=== PATIENT | male | born 1990 | race Caucasian/White ===

== ENCOUNTER 2019-05-17 22:53 | Emergency (ER) | payer OTHER ==
[~2019-05-17] VITALS: Ht 190 cm; Wt 136.4 kg
[~2019-05-17 22:53] MED LIST: AZIT250T PO; BENZ100C18 PO; PRD20T PO; SULF1TAB35 PO; TRAM50TA2 PO
[2019-05-17] MEDS ORDERED: LACTATED RINGERS 1,000 ML IV ONE (23:22)
[2019-05-17 23:40] LABS: BASOPHILS % (AUTO) 0 % (0-10); EOSINOPHILS # (AUTO) 0.1 10^3/uL (0.0-0.3); EOSINOPHILS % (AUTO) 1 % (0-10); HEMATOCRIT 47 % (40-54); HEMOGLOBIN 15.5 G/DL (13.3-17.7); LYMPHOCYTES # (AUTO) 1.5 X 10^3 (1.0-4.0); LYMPHOCYTES % (AUTO) 17 % (12-44); MEAN CORPUSCULAR HEMOGLOBIN 27 PG (25-34); MEAN CORPUSCULAR HGB CONC 33 G/DL (32-36); MEAN CORPUSCULAR VOLUME 81 FL (80-99); MEAN PLATELET VOLUME 11.2 FL (7.4-10.4); MONOCYTES # (AUTO) 0.8 X 10^3 (0.0-1.0); MONOCYTES % (AUTO) 8 % (0-12); NEUTROPHILS # (AUTO) 6.7 X 10^3 (1.8-7.8); NEUTROPHILS % (AUTO) 74 % (42-75); PLATELET COUNT 249 10^3/uL (130-400); RED CELL DISTRIBUTION WIDTH 13.5 % (10.0-14.5); WHITE BLOOD COUNT 9.1 10^3/uL (4.3-11.0)
--- NOTE | 2019-05-17 23:42 | ED Trauma-Multisystem ---
General Chief Complaint: Trauma-Non Activation Stated Complaint: SHOCKED Nursing Triage Note: O Source of Information: Patient Exam Limitations: No Limitations History of Present Illness Date Seen by Provider: May 17, 2019 Time Seen by Provider: 23:22 Initial Comments Here with report of being shocked by [address] before meals electrical line as he was connecting an extension cord to a piece of equipment at work. States that he got knocked back quite a bit of distance. He landed on his bottom. Denies any injury to his head or any injury from that. Does complain of tingling to bilateral wrist along the radial aspect. Denies loss of consciousness. Denies nausea or vomiting. He is walking okay. Occurred: Just Prior to Arrival (approximately one hour ago) Severity: Moderate Pain/Injury Location: Upper Extremity Method of Injury: Other (electrocution) Modifying Factors: Rest Associated Symptoms (Fall): No Abdominal Pain, No Chest Pain, No Confusion, No Headache; Muscle Spasms; No Nausea/Vomiting, No Neck Pain, No Shortness of Air, No Trouble Walking, No Vision Changes Allergies and Home Medications Allergies Coded Allergies: No Known Drug Allergies (Unverified , 06/25/15) Home Medications Sulfamethoxazole/Trimethoprim 1 Each Tablet, 1 EACH PO BID Prescribed by: MADHAV CORNELIUS on 01/27/16 173 Tramadol HCl 50 Mg Tablet, 50 MG PO Q4H PRN for PAIN Prescribed by: MADHAV CORNELIUS on 01/27/16 1734 Patient Home Medication List Home Medication List Reviewed: Yes Review of Systems Review of Systems Constitutional: see HPI; No chills, No fever Eyes: No Symptoms Reported Ears: No Symptoms Reported Nose: No Symptoms Reported Mouth: No Symptoms Reported Throat: No Symptoms to Report Respiratory: No cough, No short of breath Cardiovascular: Denies Chest Pain Gastrointestinal: No abdominal pain, No nausea, No vomiting Musculoskeletal: muscle pain, other (muscle spasms) Skin: no symptoms reported Psychiatric/Neurological: Tingling; Denies Weakness All Other Systems Reviewed Negative Unless Noted: Yes Past Gdixsqn-Nonsxv-Yytxww Hx Past Med/Social Hx: Reviewed Nursing Past Med/Soc Hx Patient Social History Alcohol Use: Occasionally Uses Number of Drinks Today: AA Alcohol Beverage of Choice: Beer Recreational Drug Use: No Smoking Status: Never a Smoker 2nd Hand Smoke Exposure: No Recent Foreign Travel: No Contact w/Someone Who Travel: No Recent Infectious Disease Expo: No Recent Hopitalizations: No Physical Abuse: No Sexual Abuse: No Mistreated: No Fear: No Immunizations Up To Date Tetanus Booster (TDap): More than 5yrs Seasonal Allergies Seasonal Allergies: No Past Medical History Surgeries: Yes (R TESTICLE REMOVED) Respiratory: Yes Sleep Apnea Currently Using CPAP: No Currently Using BIPAP: No Cardiac: No Neurological: No Gastrointestinal: No Musculoskeletal: No Endocrine: No HEENT: No Cancer: No Psychosocial: No Integumentary: No Blood Disorders: No Adverse Reaction/Blood Tranf: No Family Medical History Reviewed Nursing Family Hx No Pertinent Family Hx Physical Exam Vital Signs Vital Signs - First Documented 05/17/19 23:08 Temp 36.7 Pulse 97 Resp 20 B/P (MAP) 198/119 (145) Pulse Ox 97 O2 Delivery Room Air Height, Weight, BMI Height: 6'2" Weight: 330lbs. oz. 149.739696oa; 37.00 BMI Method:Stated General Appearance: No Apparent Distress, WD/WN Head: No Evidence of Injury Ears, Nose, Throat: Hearing Grossly Normal, No Evidence of ENT Injury Neck: Full Range of Motion, Normal Inspection, Non Tender, Supple Cardiovascular: Regular Rate, Rhythm, No Murmur Respiratory: Lungs Clear, Normal Breath Sounds Gastrointestinal: Non Tender, Soft Back: Normal Inspection, No CVA Tenderness, No Vertebral Tenderness Extremity: Normal Inspection, Normal Range of Motion, Non Tender, No Calf Tenderness Neurologic/Psychiatric: Alert, Oriented x3 Skin: Normal Color, Warm/Dry Ender Coma Score Best Eye Response (Allison): (4) Open Spontaneously Best Verbal Response (Ender): (5) Oriented Best Motor Response (Ender): (6) Obeys Commands Progress/Results/Core Measures Results/Orders Lab Results Laboratory Tests Test 05/17/19 23:30 Range/Units White Blood Count 9.1 4.3-11.0 10^3/uL Red Blood Count 5.81 4.35-5.85 10^6/uL Hemoglobin 15.5 13.3-17.7 G/DL Hematocrit 47 40-54 % Mean Corpuscular Volume 81 80-99 FL Mean Corpuscular Hemoglobin 27 25-34 PG Mean Corpuscular Hemoglobin Concent 33 32-36 G/DL Red Cell Distribution Width 13.5 10.0-14.5 % Platelet Count 249 130-400 10^3/uL Mean Platelet Volume 11.2 H 7.4-10.4 FL Neutrophils (%) (Auto) 74 42-75 % Lymphocytes (%) (Auto) 17 12-44 % Monocytes (%) (Auto) 8 0-12 % Eosinophils (%) (Auto) 1 0-10 % Basophils (%) (Auto) 0 0-10 % Neutrophils # (Auto) 6.7 1.8-7.8 X 10^3 Lymphocytes # (Auto) 1.5 1.0-4.0 X 10^3 Monocytes # (Auto) 0.8 0.0-1.0 X 10^3 Eosinophils # (Auto) 0.1 0.0-0.3 10^3/uL Basophils # (Auto) 0.0 0.0-0.1 10^3/uL Sodium Level 142 135-145 MMOL/L Potassium Level 3.9 3.6-5.0 MMOL/L Chloride Level 106 98-107 MMOL/L Carbon Dioxide Level 24 21-32 MMOL/L Anion Gap 12 5-14 MMOL/L Blood Urea Nitrogen 12 7-18 MG/DL Creatinine 0.94 0.60-1.30 MG/DL Estimat Glomerular Filtration Rate > 60 BUN/Creatinine Ratio 13 Glucose Level 101 70-105 MG/DL Calcium Level 9.6 8.5-10.1 MG/DL Corrected Calcium 8.5-10.1 MG/DL Total Bilirubin 0.4 0.1-1.0 MG/DL Aspartate Amino Transf (AST/SGOT) 26 5-34 U/L Alanine Aminotransferase (ALT/SGPT) 44 0-55 U/L Alkaline Phosphatase 77 40-136 U/L Total Creatine Kinase 209 H 30-200 U/L Total Protein 7.6 6.4-8.2 GM/DL Albumin 4.6 H 3.2-4.5 GM/DL My Orders Orders - JOSEFINA SUN MD Cbc With Automated Diff (05/17/19 23:22) Comprehensive Metabolic Panel (05/17/19 23:22) Creatine Kinase (05/17/19 23:22) Ed Iv/Invasive Line Start (05/17/19 23:22) Lactated Ringers (Lr 1000 Ml Iv Solution (05/17/19 23:22) Ekg Tracing (05/17/19 23:22) Medications Given in ED Current Medications Medications Dose Ordered Sig/Reena Route Start Time Stop Time Status Last Admin Dose Admin Lactated Ringer's 1,000 ml @ 0 mls/hr Q0M ONCE IV 05/17/19 23:22 05/17/19 23:29 DC 05/17/19 23:57 1,000 MLS/HR Vital Signs/I&O 05/17/19 23:08 Temp 36.7 Pulse 97 Resp 20 B/P (MAP) 198/119 (145) Pulse Ox 97 O2 Delivery Room Air Blood Pressure Mean: 145 POS Progress Progress Note : Progress Note Seen and evaluated. Patient is hypertensive on arrival but states he is always that way when he is around doctors and not that way normally. IV, labs, EKG and LR 1 L bolus ordered. Monitor patient. Occupational health for evaluation. 0048: Overall improved with improved blood pressure. Slightly elevated total CK but not in concerning level. He is doing better overall. Discharged home with return precautions. Patient verbalize understanding instructions and agreement with plan. Initial ECG Impression Date: May 17, 2019 Initial ECG Impression Time: 23:21 Initial ECG Rate: 91 Initial ECG Rhythm: Normal Sinus Comment Sinus rhythm with incomplete right bundle-branch block. No evidence of ST elevation AK. No previous available for comparison. Normal axis. Interpreted by me. Departure Impression Primary Impression: Electrocution, accidental Qualified Codes: T75.4XXA - Electrocution, initial encounter Disposition: 01 HOME, SELF-CARE Condition: Improved Departure-Patient Inst. Decision time for Depature: 00:49 Referrals: BEBO SPENCER MD (PCP/Family) Primary Care Physician Patient Instructions: Electrical Shock (DC) Add. Discharge Instructions: All discharge instructions reviewed with patient and/or family. Voiced understanding. Drink plenty of fluids. You may return to work with light duty today and then normal duty tomorrow. Follow-up with your DrEvelyn in a few days for recheck. Return for worse pain, increasing numbness or tingling in her hands, weakness, swelling, increasingly dark urine despite adequate hydration or other concerns as needed. Work/School Note: Work Release Form Date Seen in the Emergency Department: May 18, 2019 Return to Work: May 18, 2019 Restrictions: No Restrictions Other Restrictions Listed Below: Light duty for shift today and then return to normal duty tommorrow JOSEFINA SUN MD May 17, 2019 23:42 POS
[2019-05-17 23:58] LABS: ALANINE AMINOTRANSFERASE 44 U/L (0-55); ALBUMIN 4.6 GM/DL (3.2-4.5); ALKALINE PHOSPHATASE 77 U/L (40-136); BILIRUBIN,TOTAL 0.4 MG/DL (0.1-1.0); BUN/CREATININE RATIO 13; CALCIUM 9.6 MG/DL (8.5-10.1); CARBON DIOXIDE 24 MMOL/L (21-32); CHLORIDE 106 MMOL/L (98-107); CREATINE KINASE 209 U/L (30-200); CREATININE SERUM 0.94 MG/DL (0.60-1.30); GFR ESTIMATED > 60; GLUCOSE 101 MG/DL (70-105); POTASSIUM 3.9 MMOL/L (3.6-5.0); SODIUM 142 MMOL/L (135-145); TOTAL PROTEIN 7.6 GM/DL (6.4-8.2)
[2019-05-18 01:01] VITALS: BP 141/99
== END 2019-05-18 01:03 | disposition home or self-care (01) ==
LOC: EDUNIT# 22:53 → ER 22:55
DX: T75.4XXA Electrocution, initial encounter (principal); R40.2142 Coma scale, eyes open, spontaneous, at arrival to emergency department; R40.2252 Coma scale, best verbal response, oriented, at arrival to emergency department; R40.2362 Coma scale, best motor response, obeys commands, at arrival to emergency department
CPT/HCPCS: 36415; 80053; 82550; 85025; 93005; 96360

== ENCOUNTER 2021-07-30 08:46 | Emergency (ER) | payer OTHER ==
[~2021-07-30] VITALS: Ht 190 cm; Wt 127.0 kg
[~2021-07-30 08:46] MED LIST changes: -SULF1TAB35 PO; +SULF1TAB38 PO; -TRAM50TA2 PO; +TRM50T PO
[2021-07-30 08:50] VITALS: BP 156/86
[2021-07-30] MEDS ORDERED: ORPHENADRINE 60 MG/2 ML (NORFLEX) AMP (ED ONLY) IM STA (09:17)
[2021-07-30] MEDS ORDERED: KETOROLAC 60 MG/2 ML VIAL IM STA (09:17)
[2021-07-30] MEDS ORDERED: HYDROcodone/APAP 7.5 MG/325 MG (LORTAB, LORCET PLUS) TABLET PO STA (09:17)
[2021-07-30] MEDS ORDERED: PRD20T PO (09:21)
--- NOTE | 2021-07-30 09:25 | ED Back Pain ---
General Chief Complaint: Back Problems Stated Complaint: BACK PAIN Nursing Triage Note: PT AMBULATORY TO ER WITH [facility]. PT WAS WORKING ON HIS TRUCK ON THURSDAY WHEN HE INJURED HE BACK, NOT QUITE SURE HOW IT HAPPENED. PT C/O L MID-LOWER BACK PAIN/L HIP PAIN. PT WENT TO A CHIROPRACTOR YESTERDAY, REPORTS NO IMPROVEMENT WITH S/S. DENIES URINARY COMPLAINTS, DENIES LOSS OF BOWEL OR BLADDER CONTROL. PT HAS TAKEN TYLENOL/IBUPROFEN/HYDROCODONE WITH NO RELIEF. Source of Information: Patient Exam Limitations: No Limitations History of Present Illness Date Seen by Provider: Jul 30, 2021 Time Seen by Provider: 08:52 Initial Comments Here with report of left low back pain that started on Thursday, 3 days ago while working on a car. States it has progressed since then and has pain that is not better despite ibuprofen. Denies numbness between his legs, weakness, bowel or bladder incontinence, injury or fever. Has had similar type pain previously and usually gets an adjustment that helps. 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 Denies blood in urine or stool or bowel or bladder problems otherwise. Timing/Duration: 3-4 Days Severity: Moderate Pain/Injury Location: Back Radiation: Buttocks Method of Injury: Unknown Modifying Factors: Improves With Immobilization; Worse With Movement Associated Symptoms: muscle spasms; No fever, No weakness, No numbness in legs/feet, No tingling in legs/feet, No sensory/motor loss; lower back pain; No loss of bladder control, No loss of bowel control Allergies and Home Medications Allergies Coded Allergies: No Known Drug Allergies (Unverified , 06/25/15) Patient Home Medication List Home Medication List Reviewed: Yes Sulfamethoxazole/Trimethoprim (Bactrim Ds Tablet) 1 Each Tablet, 1 EACH PO BID Prescribed by: MADHAV CORNELIUS on 01/27/16 173 Tramadol HCl (Tramadol HCl) 50 Mg Tablet, 50 MG PO Q4H PRN for PAIN Prescribed by: MADHAV CORNELIUS on 01/27/161733 Review of Systems Constitutional: No chills, No fever Respiratory: no symptoms reported Cardiovascular: no symptoms reported Musculoskeletal: see HPI, back pain, joint pain, muscle pain Skin: No change in color, No lesions Psychiatric/Neurological: See HPI Past Dmsbbxo-Lfinvq-Gnixdt Hx Patient Social History Tobacco Use?: No Use of E-Cig and/or Vaping dev: No Substance use?: No Alcohol Use?: No Pt feels they are or have been: No Immunizations Up To Date Tetanus Booster (TDap): More than 5yrs First/Initial COVID19 Vaccinat: UNK Second COVID19 Vaccination Maxwell: UNK COVID19 Vaccine 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 Seasonal Allergies Seasonal Allergies: No Past Medical History Surgeries: Yes (R TESTICLE REMOVED) Respiratory: Yes Sleep Apnea Currently Using CPAP: No Currently Using BIPAP: No Cardiac: No Neurological: No Gastrointestinal: No Musculoskeletal: No Endocrine: No HEENT: No Cancer: No Psychosocial: No Integumentary: No Blood Disorders: No Adverse Reaction/Blood Tranf: No Family Medical History Reviewed Nursing Family Hx No Pertinent Family Hx Physical Exam Vital Signs Vital Signs - First Documented 07/30/21 08:50 Temp 36.7 Pulse 85 Resp 20 B/P (MAP) 156/86 (109) Pulse Ox 99 O2 Delivery Room Air Capillary Refill : Height, Weight, BMI Height: 6'2" Weight: 330lbs. oz. 149.243373di; 35.00 BMI Method:Stated General Appearance: Mild Distress, Obese Cardiovascular: Regular Rate, Rhythm, No Murmur Respiratory: Lungs Clear, Normal Breath Sounds Back: No CVA Tenderness, No Vertebral Tenderness, Muscle Spasm (Left paraspinous), Other (Tenderness in the area of the left SI joint with reproducible pain.) Extremity: Normal Range of Motion, Non Tender Neurologic/Psychiatric: Alert, Oriented x3 Skin: Normal Color, Warm/Dry Progress/Results/Core Measures Results/Orders My Orders Orders - JOSEFINA SUN MD Lortab 7.5 Mg Po (07/30/21 09:17) Toradol 60 Mg Im (07/30/21 09:17) Norflex 60 Mg Im (07/30/21 09:17) Vital Signs/I&O 07/30/21 08:50 Temp 36.7 Pulse 85 Resp 20 B/P (MAP) 156/86 (109) Pulse Ox 99 O2 Delivery Room Air Blood Pressure Mean: 109 Progress Progress Note : Progress Note Seen and evaluated. Hydrocodone 7.5/325 1 tab p.o. Toradol 60 mg IM and Norflex 60 mg IM. This does seem to be acute low back strain without red flag s ymptoms or findings. We will continue outpatient treatment with muscle relaxer and steroid. He will use topical analgesics as well as oral analgesics OTC. Discharged home with return precautions. Patient verbalized understanding instructions and agreement with plan. Departure Impression Primary Impression: Lumbar radiculopathy Disposition: 01 HOME, SELF-CARE Condition: Stable Departure-Patient Inst. Decision time for Depature: 09:19 Referrals: BEBO SPENCER MD (PCP/Family) Primary Care Physician Patient Instructions: Back Muscle Strain (DC), Radiculopathy (DC) Add. Discharge Instructions: All discharge instructions reviewed with patient and/or family. Voiced understanding. Take medications as directed. Follow-up with your doctor in a few days for recheck. You may take ibuprofen 800 mg every 8 hours as needed for pain. You may also take Tylenol/acetaminophen 1000 mg every 6-8 hours as needed for pain. You may use [id number] Icy Hot with lidocaine patches or cream, Aspercreme with lidocaine patches or cream, Salonpas with lidocaine patches or cream or similar items to area of concern per package directions. Return for worse pain, weakness, numbness between your legs, difficulty with walking or going to the bathroom or other concerns as needed. Do not take muscle relaxers while working, driving or in times of need of mental concentration as it will make you drowsy. Scripts Cyclobenzaprine HCl (Cyclobenzaprine HCl) 10 Mg Tablet 10 MG PO Q8H PRN for SPASMS, #15 TAB 0 Refills Prov: JOSEFINA SUN MD 07/30/21 Prednisone (Prednisone) 20 Mg Tab 40 MG PO DAILY, #14 TAB 0 Refills Prov: JOSEFINA SUN MD 07/30/21 Work/School Note: Work Release Form Date Seen in the Emergency Department: Jul 30, 2021 Return to Work: Jul 31, 2021 Restrictions: No Restrictions JOSEFINA SUN MD Jul 30, 2021 09:25
[2021-07-30] MEDS ORDERED: CYCL10TA25 PO (09:26)
== END 2021-07-30 09:44 | disposition home or self-care (01) ==
LOC: EDUNIT# 08:46 → ER 08:48
DX: M54.16 Radiculopathy, lumbar region (principal); E66.9 Obesity, unspecified; Z68.35 Body mass index [BMI] 35.0-35.9, adult
CPT/HCPCS: 99284

== ENCOUNTER 2022-04-28 11:22 | Emergency (ER) | payer OTHER ==
[~2022-04-28 11:22] MED LIST changes: +CYCL10TA25 PO
--- NOTE | 2022-04-28 11:31 | ED Cough/URI ---
General Chief Complaint: Cough/Cold/Flu Symptoms Stated Complaint: CONGESTION|BRONCHITIS Source: patient Exam Limitations: no limitations History of Present Illness Date Seen by Provider: Apr 28, 2022 Time Seen by Provider: 11:30 Allergies and Home Medications Allergies Coded Allergies: No Known Drug Allergies (Unverified , 06/25/15) Patient Home Medication List Home Medication List Reviewed: Yes Cyclobenzaprine HCl (Cyclobenzaprine HCl) 10 Mg Tablet, 10 MG PO Q8H PRN for SPASMS Prescribed by: JOSEFINA SUN on 07/30/21 0926 Prednisone (Prednisone) 20 Mg Tab, 40 MG PO DAILY Prescribed by: JOSEFINA SUN on 07/30/21 0921 Sulfamethoxazole/Trimethoprim (Bactrim Ds Tablet) 1 Each Tablet, 1 EACH PO BID Prescribed by: MADHAV CORNELIUS on 01/27/16 173 Tramadol HCl (Tramadol HCl) 50 Mg Tablet, 50 MG PO Q4H PRN for PAIN Prescribed by: MADHAV CORNELIUS on 01/27/16 1734 Past Vlsxbcl-Nsvdhf-Xjevnk Hx Immunizations Up To Date Tetanus Booster (TDap): More than 5yrs First/Initial COVID19 Vaccinat: UNK Second COVID19 Vaccination Maxwell: UNK Seasonal Allergies Seasonal Allergies: No Past Medical History Surgeries: Yes (R TESTICLE REMOVED) Respiratory: Yes Sleep Apnea Currently Using CPAP: No Currently Using BIPAP: No Cardiac: No Neurological: No Gastrointestinal: No Musculoskeletal: No Endocrine: No HEENT: No Cancer: No Psychosocial: No Integumentary: No Blood Disorders: No Adverse Reaction/Blood Tranf: No Family Medical History No Pertinent Family Hx Physical Exam Vital Signs - First Documented 04/28/22 11:28 Temp 39.2 Pulse 116 Resp 20 B/P (MAP) 120/80 (93) Pulse Ox 94 O2 Delivery Room Air Capillary Refill : Height: 6'2" Weight: 330lbs. oz. 149.469800eu; 35.00 BMI Method:Stated Progress/Results/Core Measures Suspected Sepsis SIRS Temperature: Pulse: Respiratory Rate: Blood Pressure / Mean: Results/Orders Lab Results Laboratory Tests Test 04/28/22 11:50 Range/Units Influenza Type A (RT-PCR) Detected H Not Detecte Influenza Type B (RT-PCR) Not Detected Not Detecte SARS-CoV-2 RNA (RT-PCR) Not Detected Not Detecte My Orders Orders - JOSSELINE NUNEZ FERMENTER HELPER Covid 19 Inhouse Test (04/28/22 11:31) Influenza A And B By Pcr (04/28/22 11:31) Ketorolac Injection (Toradol Injection) (04/28/22 12:00) Acetaminophen Tablet (Tylenol Tablet) (04/28/22 12:45) Guaifenesin/Codeine Syrup (Robitussin Ac (04/28/22 12:45) Ondansetron Oral Dissolve Tab (Zofran (04/28/22 12:31) Medications Given in ED Current Medications Medications Dose Ordered Sig/Reena Route Start Time Stop Time Status Last Admin Dose Admin Acetaminophen 1,000 mg ONCE ONCE PO 04/28/22 12:45 04/28/22 12:46 DC 04/28/22 13:19 1,000 MG Guaifenesin/ Codeine Phosphate 10 ml ONCE ONCE PO 04/28/22 12:45 04/28/22 12:46 DC 04/28/22 13:20 10 ML Ketorolac Tromethamine 60 mg ONCE ONCE IM 04/28/22 12:00 04/28/22 12:01 DC 04/28/22 12:06 60 MG Vital Signs/I&O 04/28/22 04/28/22 11:28 13:26 Temp 39.2 Pulse 116 116 Resp 20 20 B/P (MAP) 120/80 (93) 120/80 Pulse Ox 94 94 O2 Delivery Room Air Room Air Capillary Refill : Departure Impression Primary Impression: Influenza Disposition: 01 HOME, SELF-CARE Condition: Improved Departure-Patient Inst. Decision time for Depature: 12:28 Referrals: BEBO SPENCER MD (PCP/Family) Primary Care Physician Patient Instructions: Flu, Adult (DC) Add. Discharge Instructions: Plan: 1. Discharge home. 2. Stay home for 5 days and then mask when in public for additional 5 days. If you are still running fever, you will need to stay home until you are fever free. 3. Wash your hands frequently, disinfect surfaces at home. Try to isolate yo urself from others in the house as much as you are able. 4. Clean areas that may have blood, stool, or body fluids on them. Tylenol and Ibuprofen for pain and fever. You can do Tylenol 1000mg and Ibuprofen 600mg every 8 for severe pain. 5. Cover your mouth and nose when you cough or sneeze, throw away tissues, and wash hands immediately. 6. Return to ER if you develop: trouble breathing, persistent pain or pressure in the chest, new confusion, ignobility to wake or stay awake, pale, collazo, blue- colored skin, lips, or nail beds depending on skin tone. 7. Return to ER for any other new, concerning, or worsening symptoms. All discharge instructions reviewed with patient and/or family. Voiced understanding. Scripts Guaifenesin/Codeine (ROBITUSSIN AC (CODEINE) SYRUP) 10 Ml Syrp 10 ML PO Q8H PRN for COUGH, #100 ML 0 Refills Prov: JOSSELINE NUNEZ APRN 04/28/22 Work/School Note: Work Release Form Date Seen in the Emergency Department: Apr 28, 2022 Return to Work: May 03, 2022 Restrictions: Return-No Fever (24hrs) JOSSELINE NUNEZ APRN Apr 28, 2022 11:31
[2022-04-28] MEDS ORDERED: KETOROLAC 60 MG/2 ML VIAL IM ONE (12:00)
[2022-04-28] MEDS ORDERED: ONDANSETRON 4 MG (ZOFRAN) ORAL DISSOLVE TAB PO STA (12:31)
[2022-04-28] MEDS ORDERED: guaiFENesin/CODEINE (ROBITUSSIN AC) 10ML UDC PO ONE (12:45)
[2022-04-28] MEDS ORDERED: ACETAMINOPHEN 500 MG TAB (TYLENOL) PO ONE (12:45)
[2022-04-28 13:26] VITALS: BP 120/80
[2022-04-28] MEDS ORDERED: GFCD10B PO (14:23)
== END 2022-04-28 13:26 | disposition home or self-care (01) ==
LOC: EDUNIT# 11:22 → ER 11:24
DX: J11.1 Influenza due to unidentified influenza virus with other respiratory manifestations (principal); Z20.822 Contact with and (suspected) exposure to COVID-19
CPT/HCPCS: 87636